=== PATIENT | male | born 1950 ===

== ENCOUNTER 2018-07-24 23:13 | Emergency (ER) | payer MEDICARE, MEDICAID ==
[2018-07-24 23:13] VITALS: BMI 18.8
[2018-07-24 23:24] VITALS: TEMP 98
--- NOTE | 2018-07-24 23:41 | ED PDOC ---
HPI: Psych/Substance Abuse Time Seen by Provider: 07/24/18 23:24 Chief Complaint (Nursing): Psychiatric Evaluation Chief Complaint (Provider): Denies complaint - Sent by [facility] History Per: Patient History/Exam Limitations: no limitations Additional Complaint(s): 67 yo male with HTN, DM and unspecified psychosis presents for evaluation of aggitation at [facility]. According to EMS/Nursing notes pt was hitting and spitting. Pt calm an arrival. Denies complaint. Past Medical History Reviewed: Historical Data, Nursing Documentation, Vital Signs Vital Signs: Last Vital Signs Temp 98.0 F 07/24/18 23:22 Pulse 83 07/24/18 23:22 Resp 20 07/24/18 23:22 BP 146/68 07/24/18 23:22 Pulse Ox 96 07/24/18 23:22 - Medical History PMH: HTN, Hyperlipidemia Denies: Diabetes, Hepatitis, HIV, Chronic Kidney Disease, Seizures, Sexually Transmitted Disease - Surgical History Surgical History: No Surg Hx - Family History Family History: States: No Known Family Hx - Living Arrangements Living Arrangements: With Family - Social History Current smoker - smoking cessation education provided: No - Home Medications Home Medications: Ambulatory Orders Medication Instructions Recorded Carvedilol [Coreg] 6.25 mg PO DAILY 12/14/16 MetFORMIN [glucOPHAGE] 1,000 mg PO DAILY 12/14/16 Multivitamin,Ther and Minerals 1 each PO DAILY 12/14/16 [Multivitamins with Minerals Hp] QUEtiapine [SEROquel] 25 mg PO DAILY 12/14/16 Benztropine [Benztropine Mesylate] 0.5 mg PO BID 11/12/17 Clonazepam [Klonopin] 0.5 mg PO HS 11/12/17 Insulin Aspart, Recombinant 20 unit SC DAILY 11/12/17 [Novolog] Insulin Aspart/Insulin Aspar 20 units SC DAILY 11/12/17 [Novolog Mix 70/30 (70/30 units/ml)] Insulin Human (NPH)/Regular 25 units SC HS 11/12/17 [Novolin 70/30 (70/30 units/ml) 10 ml] Risperidone [Risperdal] 1 mg PO BID 11/12/17 Vit B1 100 100 mg PO DAILY 11/12/17 - Allergies Allergies/Adverse Reactions: Allergies Allergy/AdvReac Type Severity Reaction Status Date / Time No Known Allergies Allergy Verified 07/24/18 23:22 Review of Systems ROS Statement: Except As Marked, All Systems Reviewed And Found Negative Constitutional: Negative for: Fever, Chills Cardiovascular: Negative for: Chest Pain, Palpitations Respiratory: Negative for: Cough, Shortness of Breath Gastrointestinal: Negative for: Nausea, Vomiting, Abdominal Pain Psych: Positive for: Other Physical Exam - Reviewed Nursing Documentation Reviewed: Yes Vital Signs Reviewed: Yes - Physical Exam Appears: Positive for: Well, Non-toxic, No Acute Distress Head Exam: Positive for: ATRAUMATIC, NORMAL INSPECTION, NORMOCEPHALIC Skin: Positive for: Normal Color, Warm, DRY Eye Exam: Positive for: Normal appearance ENT: Positive for: Normal ENT Inspection Neck: Positive for: Normal, Painless ROM Cardiovascular/Chest: Positive for: Regular Rate, Rhythm Respiratory: Positive for: CNT, Normal Breath Sounds Gastrointestinal/Abdominal: Positive for: Normal Exam, Soft. Negative for: Tenderness Back: Positive for: Normal Inspection Extremity: Positive for: Normal ROM Neurologic/Psych: Positive for: Alert. Negative for: Facial Droop - ECG O2 Sat by Pulse Oximetry: 96 Pulse Ox Interpretation: Normal Medical Decision Making Medical Decision Making: Endorsed pending labs, CXR, EKG and crisis evaluation Disposition - Clinical Impression Clinical Impression: Encounter for psychiatric assessment - Patient ED Disposition Is Patient to be Admitted: Transfer of Care - Disposition Disposition: Transfer of Care Disposition Time: 00:00 Condition: STABLE
[2018-07-25 02:13] LABS: BASO % 0.5 % (0.0-2.0); EOS # 0.8 K/uL (0.0-0.7); HEMOGLOBIN 12.8 g/dL (12.0-18.0); LYMPH # 2.1 K/uL (1.0-4.3); LYMPH % 23.1 % (20.0-40.0); MEAN CELL VOLUME 87.3 fl (80.0-94.0); MEAN CORPUSCULAR HGB CONC 34.3 g/dL (33.0-37.0); MEAN PLATELET VOLUME 8.3 fl (7.2-11.7); MONO % 10.7 % (0.0-10.0); NEUT # 5.3 K/uL (1.8-7.0); NEUT % 56.7 % (50.0-75.0); NRBC % 0.1 % (0.0-0.0); RBC 4.26 Mil/uL (4.40-5.90); RED CELL DISTRIBUTION WIDTH 14.3 % (11.5-14.5); WHITE BLOOD COUNT 9.3 K/uL (4.8-10.8)
[2018-07-25 02:29] LABS: ALBUMIN 3.7 g/dL (3.5-5.0); ALT/SGPT 53 U/L (21-72); AST/SGOT 47 U/L (17-59); BLOOD UREA NITROGEN 33 mg/dl (9-20); CALCIUM 9.3 mg/dL (8.4-10.2); GFR NON-AFRICAN AMERICAN > 60
--- NOTE | 2018-07-25 04:34 | ED PDOC ---
- Laboratory Results Result Diagrams: 07/25/18 02:07 07/25/18 02:07 - ECG O2 Sat by Pulse Oximetry: 96 - Progress ED Course And Treament: Case endorsed to resume writer from Jose Manuel SAMANIEGO pending labs, crisis eval 00:15 Patient awake, attempting to get out of bed but redirectable and answering questions appropriately. Ativan ordered for agitation 1:1 ordered for fall risk Patient evaluated by poultry husbandry worker; does not meet criteria for admission at this time as per Dr. Zhang 2:30 Patient awake, no distress 4:00 Patient sleeping; no distress 5:30 Patient sleeping; no distress <Jacque Magaña - Last Filed: 07/25/18 05:56> - Laboratory Results Result Diagrams: 07/25/18 02:07 07/25/18 02:07 <Oziel Busby - Last Filed: 07/25/18 06:14> Medical Decision Making Medical Decision Makin Patient has negative head CT, stable for discharge back to [place] <Oziel Busby - Last Filed: 07/25/18 06:14> Disposition - POA Present On Arrival: None - Disposition Disposition: Transfer of Care Disposition Time: 06:00 Patient Signed Over To: Oziel Busby Handoff Comments: pending CT <Jacque Magaña - Last Filed: 07/25/18 05:56> - POA Present On Arrival: None - Disposition Disposition: [facility] Disposition Time: 06:10 <Oziel Busby - Last Filed: 07/25/18 06:14> - Clinical Impression Clinical Impression: Impulse control disorder - Disposition Referrals: [facility] [Outside] Condition: STABLE Instructions: Adjustment Disorder Forms: [facility] ([place]vian) Print Language: GUAT[place]ALAN
--- NOTE | 2018-07-25 08:27 | CT ---
Date of service: 07/25/2018 PROCEDURE: CT HEAD WITHOUT CONTRAST. HISTORY: AMS COMPARISON: None available. TECHNIQUE: Axial computed tomography images were obtained through the head/brain without intravenous contrast. Radiation dose: Total exam DLP = 1189.41 mGy-cm. This CT exam was performed using one or more of the following dose reduction techniques: Automated exposure control, adjustment of the mA and/or kV according to patient size, and/or use of iterative reconstruction technique. FINDINGS: HEMORRHAGE: No intracranial hemorrhage. BRAIN: No mass effect or edema. Minimal age-appropriate diffuse atrophy. Mild chronic periventricular white matter ischemic change. 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 No evidence of acute infarct. VENTRICLES: Unremarkable. No hydrocephalus. CALVARIUM: No calvarial fracture. Left high parietal/parasagittal scalp hematoma. PARANASAL SINUSES: Chronic ethmoid and right maxillary sinusitis. MASTOID AIR CELLS: Unremarkable as visualized. No inflammatory changes. OTHER FINDINGS: None. IMPRESSION: No intracranial hemorrhage. Age related atrophy and chronic microvascular ischemic change. Left high parietal scalp hematoma. Mild chronic paranasal sinusitis. Otherwise unremarkable. The preliminary findings for this examination were reported by [facility] at 6:01 a.m. on 07/25/2018. There is concurrence of this report with the preliminary findings.
[2018-07-25 11:14] VITALS: BP 112/76; PULSE 77; RESP 15; O2SAT 98
--- NOTE | 2018-07-25 11:58 | RAD ---
Date of service: 07/24/2018 HISTORY: crisis evaluation COMPARISON: No prior. FINDINGS: LUNGS: Linear scar/atelectasis at both lung bases, left greater than right. No infiltrate. Evaluation limited by oblique positioning. PLEURA: No significant pleural effusion identified, no pneumothorax apparent. CARDIOVASCULAR: Normal. OSSEOUS STRUCTURES: No significant abnormalities. VISUALIZED UPPER ABDOMEN: Normal. OTHER FINDINGS: None. IMPRESSION: Bibasilar linear scar/atelectasis. Otherwise unremarkable.
== END 2018-07-25 08:30 ==
LOC: H.ER 23:13
DX: F63.9 Impulse disorder, unspecified (principal); E11.9 Type 2 diabetes mellitus without complications; E78.5 Hyperlipidemia, unspecified; Z79.4 Long term (current) use of insulin; F29 Unspecified psychosis not due to a substance or known physiological condition; I10 Essential (primary) hypertension
CPT/HCPCS: 70450; 71045; 80053; 82948; 85025; 96372; 99283; G0480; J2060